=== PATIENT | female | born 1980 | race Caucasian/White ===

== ENCOUNTER 2023-06-23 08:58 | Day surgery (SDC) | payer OTHER ==
[2023-06-22 09:03] VITALS: BMI 21.9
[2023-06-22 10:19] LABS: Hematocrit 40.8 % (34.9-44.5); Mean Corpuscular HGB CONC 34.3 g/dL (32.0-36.0); Mean Corpuscular Hemoglobin 31.3 pg (27.0-33.0); Mean Corpuscular Volume 91.1 fl (81.6-98.3); Mean Platelet Volume 11.3 fl (7.4-10.4); Platelet Count 219 10x3/uL (150-450); RBC Distribution Width 12.3 % (11.5-14.5); Red Blood Cell (RBC) Count 4.48 10x6/uL (3.90-5.03); White Blood Cell (WBC) Count 5.5 10x3/uL (3.5-10.5)
[2023-06-22 10:56] LABS: BHCG - Serum Negative (NEGATIVE); Pregs Control Background? CLEAR/WHITE (CLR/WHITE); Pregs Control Bar Appear? YES (CONTROL BAR)
[2023-06-23] MEDS ORDERED: Lidocaine 1% PF 5 ML VIAL ONE (09:27)
[2023-06-23] MEDS ORDERED: Ondansetron PF 4 MG/2 ML Vial ONE ×2 (09:27→12:19)
[2023-06-23] MEDS ORDERED: Rocuronium Bromide 10 MG/ML (10ML VIAL) ONE (09:27)
[2023-06-23] MEDS ORDERED: PROPOFOL 20 ML ONE (09:27)
[2023-06-23] MEDS ORDERED: Dexamethasone 4 mg/ml Vial ONE (09:27)
[2023-06-23] MEDS ORDERED: EPINEPHrine 1 MG/ML VIAL ONE (09:48)
[2023-06-23] MEDS ORDERED: Bupivacaine PF 0.5% 30 ML VIAL ONE (09:49)
[2023-06-23] MEDS ORDERED: Gabapentin 300 MG CAP ONE (10:21)
[2023-06-23] MEDS ORDERED: Famotidine/PF 20 mg/2ml Vial ONE (10:21)
[2023-06-23] MEDS ORDERED: Fentanyl 250 MCG/5 ML VIAL ONE (10:54)
[2023-06-23] MEDS ORDERED: CeleCOXIB 100 MG CAP ONE (10:58)
[2023-06-23] MEDS ORDERED: SUGAMMADEX SODIUM 200 MG/2 ML VIAL ONE (11:00)
[2023-06-23] MEDS ORDERED: Dexmedetomidine 200 MCG/2 ML VIAL ONE (11:00)
[2023-06-23] MEDS ORDERED: CEFAZOLIN 2 GM VIAL ONE (11:13)
[2023-06-23] MEDS ORDERED: Glycopyrrolate 0.2 MG/ML 5 ML SYRINGE ONE (12:17)
[2023-06-23] MEDS ORDERED: oxyCODONE 5 MG TAB ONE ×2 (14:34→15:27)
== END 2023-06-23 15:55 | disposition home or self-care (01) ==
LOC: CSHSDC 08:58
PROVIDERS: ATTEND Obstetrics & Gynecology
DX: N84.0 Polyp of corpus uteri (principal); N80.03 Adenomyosis of the uterus; N87.9 Dysplasia of cervix uteri, unspecified; N88.8 Other specified noninflammatory disorders of cervix uteri; N92.0 Excessive and frequent menstruation with regular cycle; N94.6 Dysmenorrhea, unspecified; R19.2 Visible peristalsis; N32.89 Other specified disorders of bladder
CPT/HCPCS: 84703; 85027; 86850; 86900; 86901; 88307; J0171; J1100; J2405; J2704; J3010; S0020; S0028

== ENCOUNTER 2023-08-10 10:18 | Outpatient (CLI) | payer OTHER | END 2023-08-10 10:19 | disposition home or self-care (01) | LOC: CSHMAMMO 10:18 | PROVIDERS: ATTEND Obstetrics & Gynecology | DX: Z12.31 Encounter for screening mammogram for malignant neoplasm of breast (principal); Z80.3 Family history of malignant neoplasm of breast | CPT/HCPCS: 77063; 77067 ==